=== PATIENT | female | born 1990 | race African-American/Black ===

== ENCOUNTER 2016-09-10 16:00 | Emergency (ER) | payer MEDICAID ==
[~2016-09-10 16:00] MED LIST: NO MEDICATIONS
[2016-09-10 16:58] LABS: URINE SOURCE CLEAN CATCH
[2016-09-10 17:05] LABS: URINE APPEARANCE CLEAR; URINE BILIRUBIN NEG (NEG); URINE BLOOD NEG (NEG); URINE COLOR YELLOW; URINE GLUCOSE 500 MG/DL (NEG); URINE KETONE 3+ (NEG); URINE LEUKOCYTE ESTERASE NEG (NEG); URINE NITRATE NEG (NEG); URINE PROTEIN NEG (NEG); URINE SPECIFIC GRAVITY 1.021 (1.003-1.035)
[2016-09-10 17:13] LABS: CULTURE INDICATED? NO
[2016-09-14 23:43] LABS: CHLAMYDIA TRACH Not Detected (Not Detected); N GONOR Not Detected (Not Detected)
== END 2016-09-10 18:30 | disposition home or self-care (01) ==
LOC: CED 16:00 → CFTX 16:00
PROVIDERS: Physician Assistant
DX: R30.0 Dysuria (principal); N95.2 Postmenopausal atrophic vaginitis
CPT/HCPCS: 81003; 82947; 84703; 87491; 87591; 87808; 87905; 99284